=== PATIENT | male | born 1955 | race Caucasian/White ===

== ENCOUNTER 2016-10-19 07:06 | Emergency (ER) | payer MEDICARE ==
[2016-10-19 07:32] LABS: BASO # 0.1 10_X3_uL (0.0-0.1); BASO % 1.7 % (0.2-1.2); EOS # 0.6 10_X3_uL (0.0-0.5); GRAN # 1.8 10_X3_uL (1.8-5.4); GRAN % 39.4 % (34.0-67.9); HEMATOCRIT 40.8 % (40-51); HEMOGLOBIN 14.8 g/dL (13.7-17.5); LYMPH # 1.8 10_X3_uL (1.3-3.6); LYMPH % 38.7 % (21.8-53.1); MEAN CORPUSCULAR HGB CONC 36.3 g/dL (32.0-36.0); MEAN CORPUSCULAR VOLUME 85.5 fL (79-92); MEAN PLATELET VOLUME 9.5 fl (7.5-11.5); MONO # 0.3 10_X3_uL (0.3-0.8); MONO % 7.2 % (5.3-12.2); PLATELET COUNT 169 x10_3/uL (163-337); RED BLOOD COUNT 4.77 x10_6/uL (4.6-6.1); RED CELL DISTRIBUTION WIDTH 13.4 % (11.6-14.4); WHITE BLOOD COUNT 4.6 x10_3/uL (4.2-9.1)
[2016-10-19 07:46] LABS: ALBUMIN 4.4 gm/dL (3.4-5.0); ALKALINE PHOSPHATASE 75 U/L (50-136); ALT/SGPT 65 U/L (7.53-40.17); AST/SGOT 36 U/L (6.66-35.34); BILIRUBIN,TOTAL 0.92 mg/dL (0.0-1.0); BLOOD UREA NITROGEN 11 mg/dL (7-18); CALCIUM 9.3 mg/dL (8.7-10.7); CARBON DIOXIDE 23 mmol/L (21-32); CREATINE KINASE 256 U/L (35-232); CREATININE 0.8 mg/dL (0.6-1.3); GLUCOSE,RANDOM 210 mg/dL (70-99); POTASSIUM 3.9 mmol/L (3.5-5.1); SODIUM 138 mmol/L (136-145); TOTAL PROTEIN 6.7 gm/dL (6.4-8.2)
== END 2016-10-19 10:40 | disposition home or self-care (01) ==
LOC: ER 07:06
PROVIDERS: Emergency Medicine
DX: J06.9 Acute upper respiratory infection, unspecified (principal); J44.9 Chronic obstructive pulmonary disease, unspecified; I10 Essential (primary) hypertension; Z79.1 Long term (current) use of non-steroidal anti-inflammatories (NSAID); Z79.899 Other long term (current) drug therapy; Z88.0 Allergy status to penicillin
CPT/HCPCS: 36415; 71250; 80053; 82550; 82553; 85025; 86738; 93005; 94664; 99070; 99284; 99284-25